=== PATIENT | female | born 1940 ===

== ENCOUNTER 2017-03-19 11:02 | Emergency (ER) | payer MEDICARE, OTHER ==
[2017-03-19 11:16] VITALS: BP 118/69; PULSE 83; RESP 16; TEMP 97; O2SAT 98; BMI 23.7
--- NOTE | 2017-03-19 13:26 | ED PDOC ---
HPI: General Adult Time Seen by Provider: 03/19/17 11:55 Chief Complaint (Nursing): Abnormal Skin Integrity Past Medical History Vital Signs: Last Vital Signs Temp 97 F L 03/19/17 11:15 Pulse 83 03/19/17 11:15 Resp 16 03/19/17 11:15 BP 118/69 03/19/17 11:15 Pulse Ox 98 03/19/17 11:15 - Medical History PMH: Diabetes, HTN, Hypercholesterolemia Denies: Chronic Kidney Disease - Surgical History Surgical History: Endoscopy - Family History Family History: States: Unknown Family Hx - Immunization History Hx Tetanus Toxoid Vaccination: Yes - Home Medications Home Medications: Ambulatory Orders Medication Instructions Recorded Insulin Aspart, Recombinant 8 units SC TID 09/10/16 [Novolog] Insulin Detemir [Levemir] 20 unit SC HS #1 bottle 09/10/16 Olmesartan Medoxomil [Benicar] 5 mg PO DAILY 09/10/16 metFORMIN [glucOPHAGE] 500 mg PO BID 09/10/16 Cephalexin [cephalexin] 500 mg PO QID 7 Days 03/19/17 DiphenhydrAMINE [Benadryl] 25 mg PO Q8H PRN 5 Days 03/19/17 - Allergies Allergies/Adverse Reactions: Allergies Allergy/AdvReac Type Severity Reaction Status Date / Time No Known Allergies Allergy Verified 09/10/16 03:02 - ECG O2 Sat by Pulse Oximetry: 98 Pulse Ox Interpretation: Normal - Progress ED Course And Treament: 1323: Stable. AAOx3. Pain free. Family states she gets this frequently after eating shrimp. Disposition - Clinical Impression Clinical Impression: Allergic reaction, Cellulitis - Patient ED Disposition Is Patient to be Admitted: No Counseled Patient/Family Regarding: Diagnosis, Need For Followup, Rx Given - Disposition Referrals: [facility] [Outside] - 03/20/17 Bill Berman MD [Staff Provider] - Disposition: Routine/Home Disposition Time: 13:24 Condition: STABLE Additional Instructions: Return if not better in 3 days. Prescriptions: Cephalexin [cephalexin] 500 mg PO QID 7 Days DiphenhydrAMINE [Benadryl] 25 mg PO Q8H PRN 5 Days PRN Reason: Rash Instructions: General Allergic Reaction (ED), Cellulitis (ED) Print Language: [place] HEL[place]
== END 2017-03-19 13:48 | disposition home or self-care (01) ==
LOC: H.ER 11:02
DX: T78.40XA Allergy, unspecified, initial encounter (principal); L03.90 Cellulitis, unspecified; E11.9 Type 2 diabetes mellitus without complications; E78.00 Pure hypercholesterolemia, unspecified; I10 Essential (primary) hypertension; Z79.4 Long term (current) use of insulin; Z79.899 Other long term (current) drug therapy

== ENCOUNTER 2017-11-24 00:42 | Emergency (ER) | payer MEDICARE, OTHER ==
[2017-11-24 00:43] VITALS: BMI 23.7
[2017-11-24] MEDS ORDERED: Naproxen 500 MG TAB PO STA (01:24)
--- NOTE | 2017-11-24 03:08 | CT ---
EXAM: CT Lumbar Spine Without Intravenous Contrast CLINICAL HISTORY: 77 years old, female; Pain; Low back pain; Additional info: Neck hip and lower back pain S/P fall TECHNIQUE: Axial computed tomography images of the lumbar spine without intravenous contrast. All CT scans at this facility use one or more dose reduction techniques, viz.: automated exposure control; ma/kV adjustment per patient size (including targeted exams where dose is matched to indication; i.e. head); or iterative reconstruction technique. Coronal and sagittal reformatted images were created and reviewed. COMPARISON: No relevant prior studies available. FINDINGS: Vertebrae: No acute fracture. Mild facet osteoarthrosis. Discs/spinal canal/neural foramina: [id number] degenerative disc disease at L2-L3 level. Mild degenerative disc disease at remaining levels. Poxn-eq-uopkuoel central canal stenosis at L2-L3, L3-L4, L4-L5 levels. Soft tissues: Unremarkable. Vasculature: Atherosclerotic disease of visualized arteries. Kidneys and ureters: Small calculus within LEFT kidney. Stomach and bowel: Postsurgical changes of distal colon. Colonic diverticula. Reproductive: Mild prominent uterus for age. IMPRESSION: 1. No fracture. 2. Incidental/non-acute findings are described above.
--- NOTE | 2017-11-24 03:26 | ED PDOC ---
HPI: General Adult Time Seen by Provider: 11/24/17 01:09 Chief Complaint (Nursing): Trauma Chief Complaint (Provider): Low back and hip pain s/ fall History Per: Patient History/Exam Limitations: no limitations Onset/Duration Of Symptoms: Mins Have you had recent travel within the past 21 days to any of the following countries: [place], [place], [place] or [place]?: No Additional Complaint(s): 77 yo female with HTN and DM presents to ER with daughter for evaluation of lower back and left hip pain. PT states she was gettign out of bed to get some water when she got tangled in the sheets and tripped. No LOC. No head injury. Pt did not take anything at home for pain. Pt concerned about hip, ambulated into ER Past Medical History Reviewed: Historical Data, Nursing Documentation, Vital Signs Vital Signs: Last Vital Signs Temp 97.7 F 11/24/17 01:04 Pulse 88 11/24/17 01:04 Resp 18 11/24/17 01:04 BP 166/91 H 11/24/17 01:04 Pulse Ox 96 11/24/17 01:04 - Medical History PMH: Diabetes, HTN, Hypercholesterolemia Denies: Chronic Kidney Disease - Surgical History Surgical History: Endoscopy - Family History Family History: States: Unknown Family Hx - Living Arrangements Living Arrangements: With Family - Social History Current smoker - smoking cessation education provided: No - Immunization History Hx Tetanus Toxoid Vaccination: Yes - Home Medications Home Medications: Ambulatory Orders Medication Instructions Recorded Insulin Aspart, Recombinant 8 units SC TID 09/10/16 [Novolog] Insulin Detemir [Levemir] 20 unit SC HS #1 bottle 09/10/16 Olmesartan Medoxomil [Benicar] 5 mg PO DAILY 09/10/16 metFORMIN [glucOPHAGE] 500 mg PO BID 09/10/16 Cephalexin [cephalexin] 500 mg PO QID 7 Days cap 03/19/17 DiphenhydrAMINE [Benadryl] 25 mg PO Q8H PRN 5 Days cap 03/19/17 - Allergies Allergies/Adverse Reactions: Allergies Allergy/AdvReac Type Severity Reaction Status Date / Time No Known Allergies Allergy Verified 09/10/16 03:02 Review of Systems ROS Statement: Except As Marked, All Systems Reviewed And Found Negative Constitutional: Negative for: Fever, Chills Cardiovascular: Negative for: Chest Pain Respiratory: Negative for: Cough, Shortness of Breath Musculoskeletal: Positive for: Back Pain, Other Physical Exam - Reviewed Nursing Documentation Reviewed: Yes Vital Signs Reviewed: Yes - Physical Exam Appears: Positive for: Well, Non-toxic, No Acute Distress Head Exam: Positive for: ATRAUMATIC, NORMAL INSPECTION, NORMOCEPHALIC Skin: Positive for: Normal Color, Warm, DRY Eye Exam: Positive for: Normal appearance ENT: Positive for: Normal ENT Inspection Neck: Positive for: Normal, Painless ROM Cardiovascular/Chest: Positive for: Regular Rate, Rhythm Respiratory: Positive for: Normal Breath Sounds. Negative for: Accessory Muscle Use, Respiratory Distress Gastrointestinal/Abdominal: Positive for: Normal Exam, Bowel Sounds, Soft. Negative for: Tenderness Back: Positive for: Vertebral Tenderness. Negative for: Normal Inspection Extremity: Positive for: Normal ROM Neurologic/Psych: Positive for: Alert, Oriented - ECG O2 Sat by Pulse Oximetry: 96 Medical Decision Making Medical Decision Making: LS CT - No acute findings Copy given to patient and discussed f/u with PMD for non-urgent findings Hip x-ray without acute fracture or dislocation (reviewed with Dr. Raines) Disposition - Clinical Impression Clinical Impression: Hip injury - Patient ED Disposition Is Patient to be Admitted: No Counseled Patient/Family Regarding: Diagnosis, Need For Followup - Disposition Disposition: Routine/Home Disposition Time: 03:27 Condition: STABLE Instructions: Preventing Falls in the Older Adult Print Language: BRAZILIAN
[2017-11-24 03:46] VITALS: BP 154/89; PULSE 75; RESP 16; TEMP 97.5; O2SAT 98
--- NOTE | 2017-11-24 09:55 | RAD ---
PROCEDURE: Left Hip X-ray Radiographs. HISTORY: Left hip pain, fall COMPARISON: None. FINDINGS: BONES: Frontal view of the pelvis and frontal and frogleg views of the left hip were performed for left hip pain and trauma. No fracture is seen. No femoral head flattening is seen. No hip dislocation is noted. Remainder of the [place] pelvis including the right hip are intact. No sacroiliac joint widening is seen. Mild degenerative changes are identified in the left hip region. Trochanters and proximal left femoral shaft are intact. JOINTS: See above SOFT TISSUES: Normal. OTHER FINDINGS: None. IMPRESSION: No fracture.
== END 2017-11-24 03:53 | disposition home or self-care (01) ==
LOC: H.ER 00:42
DX: S79.912A Unspecified injury of left hip, initial encounter (principal); W06.XXXA Fall from bed, initial encounter; Y93.9 Activity, unspecified; E11.9 Type 2 diabetes mellitus without complications; I10 Essential (primary) hypertension; Z79.4 Long term (current) use of insulin; E78.00 Pure hypercholesterolemia, unspecified

== ENCOUNTER 2018-05-20 11:04 | Emergency (ER) | payer MEDICARE, OTHER ==
[2018-05-20 11:22] VITALS: O2SAT 97; BMI 23.3
[2018-05-20 12:51] LABS: BASO # 0.1 K/uL (0.0-0.2); BASO % 0.9 % (0.0-2.0); EOS # 0.2 K/uL (0.0-0.7); EOS % 2.7 % (0.0-4.0); HEMOGLOBIN 12.9 g/dL (12.0-16.0); LYMPH # 1.6 K/uL (1.0-4.3); LYMPH % 25.1 % (20.0-40.0); MEAN CELL VOLUME 87.1 fl (81.0-99.0); MEAN CORPUSCULAR HGB CONC 33.3 g/dL (33.0-37.0); MEAN PLATELET VOLUME 8.7 fl (7.2-11.7); MONO # 0.4 K/uL (0.0-0.8); MONO % 6.8 % (0.0-10.0); NEUT # 4.2 K/uL (1.8-7.0); NEUT % 64.5 % (50.0-75.0); RBC 4.43 Mil/uL (3.80-5.20); RED CELL DISTRIBUTION WIDTH 13.8 % (11.5-14.5); WHITE BLOOD COUNT 6.5 K/uL (4.8-10.8)
[2018-05-20 12:55] LABS: PROTHROMBIN TIME 10.7 Seconds (9.8-13.1)
[2018-05-20 12:58] LABS: PARTIAL THROMBOPLASTIN TIME 25.9 Seconds (25.6-37.1)
--- NOTE | 2018-05-20 13:01 | ED PDOC ---
HPI: Trauma/Fall - HPI Time Seen by Provider: 05/20/18 12:12 Chief Complaint (Nursing): Trauma Chief Complaint (Provider): Trauma History Per: Patient History/Exam Limitations: no limitations Onset/Duration Of Symptoms: Hrs Location Of Injury: Right: Elbow, Head Associated Symptoms: Dizziness. denies: LOC Additional Complaint(s): 78 years old female with hypertension, hypercholesterolemia and diabetes presents to the ED with pain to head, right elbow and pelvis status post a mechanical fall onset this morning while getting out of shower. Patient states she slipped and hit her head with bathroom floor. She denies any loss of consciousness but reports dizziness lasted for 5 minutes. Patient reports right elbow pain on flexion and extension. She denies any nausea or vomiting. PMD: non provided Past Medical History Reviewed: Historical Data, Nursing Documentation, Vital Signs Vital Signs: Last Vital Signs Temp 97 F L 05/20/18 11:21 Pulse 74 05/20/18 11:21 Resp 20 05/20/18 11:21 BP 138/82 05/20/18 11:21 Pulse Ox 97 05/20/18 11:21 - Medical History PMH: Diabetes, HTN, Hypercholesterolemia Denies: Chronic Kidney Disease - Surgical History Surgical History: Endoscopy - Family History Family History: States: Unknown Family Hx - Social History Current smoker - smoking cessation education provided: No Alcohol: None Drugs: Denies - Immunization History Hx Tetanus Toxoid Vaccination: Yes Hx Influenza Vaccination: Yes Hx Pneumococcal Vaccination: No - Home Medications Home Medications: Ambulatory Orders Medication Instructions Recorded Insulin Aspart, Recombinant 8 units SC TID 09/10/16 [Novolog] Insulin Detemir [Levemir] 20 unit SC HS #1 bottle 09/10/16 Olmesartan Medoxomil [Benicar] 5 mg PO DAILY 09/10/16 metFORMIN [glucOPHAGE] 500 mg PO BID 09/10/16 Cephalexin [cephalexin] 500 mg PO QID 7 Days cap 03/19/17 DiphenhydrAMINE [Benadryl] 25 mg PO Q8H PRN 5 Days cap 03/19/17 - Allergies Allergies/Adverse Reactions: Allergies Allergy/AdvReac Type Severity Reaction Status Date / Time No Known Allergies Allergy Verified 09/10/16 03:02 Review of Systems ROS Statement: Except As Marked, All Systems Reviewed And Found Negative Gastrointestinal: Negative for: Nausea, Vomiting Musculoskeletal: Positive for: Hand Pain (Right elbow), Other (Pelvis pain) Neurological: Positive for: Dizziness Physical Exam - Reviewed Nursing Documentation Reviewed: Yes Vital Signs Reviewed: Yes - Physical Exam Appears: Positive for: Non-toxic, No Acute Distress Head Exam: Positive for: ATRAUMATIC, NORMOCEPHALIC Skin: Positive for: Normal Color, Warm, Dry Eye Exam: Positive for: Normal appearance, EOMI, PERRL Gastrointestinal/Abdominal: Positive for: Normal Exam, Soft. Negative for: Tenderness Back: Positive for: Normal Inspection. Negative for: Vertebral Tenderness Extremity: Positive for: Normal ROM (of upper and lower extremity. Full ROM of hips and knees.), Other (Pain on flexion and extension of right elbow with no loss of movement. Distal pulses 2+). Negative for: Tenderness (on palpation to left posterior hip) Neurologic/Psych: Positive for: Alert, Oriented (x3), Other (Cranial nerves iintact). Negative for: Motor/Sensory Deficits - Laboratory Results Result Diagrams: 05/20/18 12:43 05/20/18 12:43 - ECG O2 Sat by Pulse Oximetry: 97 (RA) Pulse Ox Interpretation: Normal Medical Decision Making Medical Decision Making: Time: 1222 A/P: workup for injury due to mechanical fall --Patient is able to ambulate --Right elbow X-Ray --Head CT --Cervical spine CT [address] FINDINGS: HEMORRHAGE: No intracranial hemorrhage. BRAIN: Normal henderson-white matter differentiation and density are appreciated throughout the cerebrum and cerebellum with the brainstem appearing unremarkable as well. There is no mass effect. There is no suspicious extra-axial fluid collection and the midline brain anatomy appears diffusely unremarkable. VENTRICLES: Unremarkable. No hydrocephalus. CALVARIUM: No destructive bony lesion or displaced fracture identified including through the skullbase. PARANASAL SINUSES: Unremarkable as visualized. No significant inflammatory changes. MASTOID AIR CELLS: Unremarkable as visualized. No inflammatory changes. OTHER FINDINGS: None. IMPRESSION: Stable unremarkable noncontrast head CT. [address] FINDINGS: VERTEBRAE: Borderline spondylolisthesis C3-4 with C3 questionably anterior to C4 by less than 2 mm. Degenerative facet arthropathy is felt to be the etiology. No fracture identified throughout cervical spine. Mild cervical straightening appreciated. Advanced spondylosis is seen at C6-7, moderate at C5-6. DISCS/SPINAL CANAL/NEURAL FORAMINA: Moderate to severe left and moderate right degenerative neural foraminal stenoses are identified with disc osteophyte complex causing borderline central stenosis at C6-7. No significant central stenosis otherwise evident. PARASPINAL SOFT TISSUES: Unremarkable. OTHER FINDINGS: None. IMPRESSION: No fracture appreciated throughout. Borderline degenerative spondylolisthesis C3 -4. Borderline degenerative central canal stenosis C6-7. Moderate to severe left and moderate right degenerative neural foraminal stenoses identified. No gross disc herniation. 1518 Hip/Pelvis X-Ray FINDINGS: There are no osseous abnormalities to suggest fracture. The pelvic ring is intact. Preserved femoral-acetabular relationship. Negative study for protrusio , subluxation or dislocation. Degenerative changes: Mild and symmetrical. IMPRESSION: No acute findings related to/accounting for the clinical presentation. 1519 Elbow X-Ray FINDINGS: BONES: Normal. No fracture. JOINTS: Normal. No osteoarthritis. SOFT TISSUES: Normal. JOINT EFFUSION: None. OTHER FINDINGS: None. IMPRESSION: No acute findings related to/accounting for the clinical presentation. 1548 Images reviewed and show no significant abnormality. Patient is ambulatory without deficit, will go home with children with a prescription of Tylenol and instructions to follow up with PMD. ----- Scribe Attestation: Documented by Kaia Dawn, acting as a scribe for Kisha Vasquez MD. Provider Scribe Attestation: All medical record entries made by the Scribe were at my direction and personally dictated by me. I have reviewed the chart and agree that the record accurately reflects my personal performance of the history, physical exam, medical decision making, and the department course for this patient. I have also personally directed, reviewed, and agree with the discharge instructions and disposition. Disposition - Clinical Impression Clinical Impression: Accident due to mechanical fall without injury, Minor head trauma - Disposition Disposition: Routine/Home Disposition Time: 15:48 Condition: IMPROVED Additional Instructions: Take Tylenol for pain. Follow up with primary medical doctor as needed. Return to the emergency department if you develop dizziness, weakness, numbness, trouble breathing, confusion, nausea, or vomiting. Instructions: Preventing Falls in the Older Adult, Minor Head Injury, Minor Head Injury (DC) Forms: [facility] (Brazilian), [facility] (Yakut) Print Language: NIUEAN
[2018-05-20 13:04] LABS: CALCIUM 9.6 mg/dL (8.4-10.2); GFR NON-AFRICAN AMERICAN > 60
[2018-05-20 13:05] LABS: BLOOD UREA NITROGEN 21 mg/dl (7-17)
--- NOTE | 2018-05-20 13:13 | CT ---
Date of service: 05/20/2018 PROCEDURE: CT HEAD WITHOUT CONTRAST. HISTORY: mechanical fall with head strike COMPARISON: Noncontrast head CT 09/05/2014. TECHNIQUE: Axial computed tomography images were obtained through the head/brain without intravenous contrast. Radiation dose: Total exam DLP = 666.37 mGy-cm. This CT exam was performed using one or more of the following dose reduction techniques: Automated exposure control, adjustment of the mA and/or kV according to patient size, and/or use of iterative reconstruction technique. FINDINGS: HEMORRHAGE: No intracranial hemorrhage. BRAIN: Normal henderson-white matter differentiation and density are appreciated throughout the cerebrum and cerebellum with the brainstem appearing unremarkable as well. There is no mass effect. There is no suspicious extra-axial fluid collection and the midline brain anatomy appears diffusely unremarkable. VENTRICLES: Unremarkable. No hydrocephalus. CALVARIUM: No destructive bony lesion or displaced fracture identified including through the skullbase. PARANASAL SINUSES: Unremarkable as visualized. No significant inflammatory changes. MASTOID AIR CELLS: Unremarkable as visualized. No inflammatory changes. OTHER FINDINGS: None. IMPRESSION: Stable unremarkable noncontrast head CT.
--- NOTE | 2018-05-20 13:47 | CT ---
Date of service: 05/20/2018 PROCEDURE: CT Cervical Spine without contrast HISTORY: mechanical fall with head strike COMPARISON: Cervical spine radiographs 04/16/2017. TECHNIQUE: Axial computed tomography images were obtained of the cervical spine without the use of intravenous contrast. Coronal and sagittal reformatted images were created and reviewed. Radiation dose: Total exam DLP = 334.92 mGy-cm. This CT exam was performed using one or more of the following dose reduction techniques: Automated exposure control, adjustment of the mA and/or kV according to patient size, and/or use of iterative reconstruction technique. FINDINGS: VERTEBRAE: Borderline spondylolisthesis C3-4 with C3 questionably anterior to C4 by less than 2 mm. Degenerative facet arthropathy is felt to be the etiology. No fracture identified throughout cervical spine. Mild cervical straightening appreciated. Advanced spondylosis is seen at C6-7, moderate at C5-6. DISCS/SPINAL CANAL/NEURAL FORAMINA: Moderate to severe left and moderate right degenerative neural foraminal stenoses are identified with disc osteophyte complex causing borderline central stenosis at C6-7. No significant central stenosis otherwise evident. PARASPINAL SOFT TISSUES: Unremarkable. OTHER FINDINGS: None. IMPRESSION: No fracture appreciated throughout. Borderline degenerative spondylolisthesis C3-4. Borderline degenerative central canal stenosis C6-7. Moderate to severe left and moderate right degenerative neural foraminal stenoses identified. No gross disc herniation.
--- NOTE | 2018-05-20 15:19 | RAD ---
Date of service: 05/20/2018 PROCEDURE: Pelvis bilateral hips HISTORY: mechanical fall with pain to right hip/pelvis COMPARISON: None TECHNIQUE: Standard protocol for this study/examination. FINDINGS: There are no osseous abnormalities to suggest fracture. The pelvic ring is intact. Preserved femoral-acetabular relationship. Negative study for protrusio, subluxation or dislocation. Degenerative changes: Mild and symmetrical. IMPRESSION: No acute findings related to/accounting for the clinical presentation.
--- NOTE | 2018-05-20 15:20 | RAD ---
Date of service: 05/20/2018 PROCEDURE: Radiographs of the right elbow. HISTORY: trauma and pain to right elbow COMPARISON: No prior. FINDINGS: BONES: Normal. No fracture. JOINTS: Normal. No osteoarthritis. SOFT TISSUES: Normal. JOINT EFFUSION: None. OTHER FINDINGS: None. IMPRESSION: No acute findings related to/accounting for the clinical presentation.
[2018-05-20 16:01] VITALS: BP 132/76; PULSE 78; RESP 16; TEMP 97.5
--- NOTE | 2018-05-20 18:57 | CARD ---
APPROVED REPORT Date of service: 05/20/2018 <Conclusion> Normal sinus rhythm Nonspecific ST abnormality Abnormal ECG
== END 2018-05-20 15:59 | disposition home or self-care (01) ==
LOC: H.ER 11:04
DX: S09.90XA Unspecified injury of head, initial encounter (principal); E11.9 Type 2 diabetes mellitus without complications; I10 Essential (primary) hypertension; Z79.4 Long term (current) use of insulin; W01.198A Fall on same level from slipping, tripping and stumbling with subsequent striking against other object, initial encounter; Y93.F1 Activity, caregiving, bathing

== ENCOUNTER 2019-01-26 02:32 | Observation (INO) | payer MEDICARE, OTHER ==
[2019-01-26 02:32] VITALS: BMI 23.3
[2019-01-26 03:26] LABS: ALB/GLOB RATIO 1.3 (1.0-2.1); ALBUMIN 4.5 g/dL (3.5-5.0); BLOOD UREA NITROGEN 26 mg/dl (7-17); CALCIUM 9.9 mg/dL (8.4-10.2); GFR NON-AFRICAN AMERICAN > 60
[2019-01-26 03:28] LABS: ALT/SGPT 26 U/L (9-52); AST/SGOT 31 U/L (14-36)
[2019-01-26 03:59] LABS: BASO % 0.6 % (0.0-2.0); EOS # 0.3 K/uL (0.0-0.7); EOS % 3.3 % (0.0-4.0); HEMOGLOBIN 13.6 g/dL (12.0-16.0); LYMPH # 2.7 K/uL (1.0-4.3); LYMPH % 33.8 % (20.0-40.0); MEAN CELL VOLUME 84.4 fl (81.0-99.0); MEAN CORPUSCULAR HEMOGLOBIN 28.8 pg (27.0-31.0); MEAN CORPUSCULAR HGB CONC 34.1 g/dL (33.0-37.0); MEAN PLATELET VOLUME 9.5 fl (7.2-11.7); MONO # 0.6 K/uL (0.0-0.8); MONO % 7.5 % (0.0-10.0); NEUT # 4.4 K/uL (1.8-7.0); NEUT % 54.8 % (50.0-75.0); NRBC % 0.1 % (0.0-0.0); RBC 4.74 Mil/uL (3.80-5.20); RED CELL DISTRIBUTION WIDTH 13.8 % (11.5-14.5)
--- NOTE | 2019-01-26 04:20 | ED PDOC ---
HPI: General Adult Time Seen by Provider: 01/26/19 02:50 Chief Complaint (Nursing): Chest Pain Chief Complaint (Provider): Elevated suagr and blood pressure History Per: Patient, Trim Carpenter (CAROLINA CassidyHander In named Cindi #[id number]) History/Exam Limitations: no limitations Onset/Duration Of Symptoms: Hrs Additional Complaint(s): 78 year old female with pmhx of diabetes presents to the ED for an evaluation of elevated blood pressure and elevated sugar after eating tonight. Her sugar level was about 400. Also reports of slight dizziness. Otherwise denies fever, vomiting, diarrhea or abdominal pain. PMD: Desmond Mejía Past Medical History Reviewed: Historical Data, Nursing Documentation, Vital Signs Vital Signs: Last Vital Signs Temp 98 F 01/26/19 02:45 Pulse 78 01/26/19 02:45 Resp 20 01/26/19 02:45 BP 149/82 01/26/19 03:02 Pulse Ox 166 H 01/26/19 02:45 Primary Care Provider: Desmond Mejía - Medical History PMH: Diabetes, HTN, Hypercholesterolemia Denies: Chronic Kidney Disease - Surgical History Surgical History: Endoscopy - Family History Family History: States: Unknown Family Hx - Social History Current smoker - smoking cessation education provided: No Alcohol: None Drugs: Denies - Immunization History Hx Tetanus Toxoid Vaccination: Yes Hx Influenza Vaccination: Yes Hx Pneumococcal Vaccination: No - Home Medications Home Medications: Ambulatory Orders Medication Instructions Recorded Insulin Aspart, Recombinant 8 units SC TID 09/10/16 [Novolog] Insulin Detemir [Levemir] 20 unit SC HS #1 bottle 09/10/16 Atorvastatin [Lipitor] 40 mg PO HS 01/26/19 Carvedilol [Coreg] 6.25 mg PO BID 01/26/19 Empagliflozin/Metformin HCl 1 tab PO BID 01/26/19 [Synjardy 12.5-1,000 mg Tablet] Gabapentin [Neurontin] 300 mg PO HS 01/26/19 Olmesartan/Hydrochlorothiazide 1 tab PO DAILY 01/26/19 [Benicar Hct 40-12.5 mg Tablet] Omeprazole 40 mg PO DAILY 01/26/19 Ondansetron HCl [Zofran] 8 mg PO TID PRN 01/26/19 amLODIPine [Norvasc] 10 mg PO DAILY 01/26/19 - Allergies Allergies/Adverse Reactions: Allergies Allergy/AdvReac Type Severity Reaction Status Date / Time No Known Allergies Allergy Verified 01/26/19 02:47 Review of Systems ROS Statement: Except As Marked, All Systems Reviewed And Found Negative Constitutional: Negative for: Fever Respiratory: Negative for: Cough, Shortness of Breath Gastrointestinal: Negative for: Nausea, Vomiting, Abdominal Pain, Diarrhea Neurological: Positive for: Dizziness Physical Exam - Reviewed Nursing Documentation Reviewed: Yes Vital Signs Reviewed: Yes - Physical Exam Appears: Positive for: Well, Non-toxic, No Acute Distress Head Exam: Positive for: ATRAUMATIC, NORMAL INSPECTION, NORMOCEPHALIC Skin: Positive for: Normal Color, Warm, Dry. Negative for: Rash Eye Exam: Positive for: EOMI, Normal appearance, PERRL ENT: Positive for: Normal ENT Inspection Neck: Positive for: Normal, Painless ROM Cardiovascular/Chest: Positive for: Regular Rate, Rhythm. Negative for: Murmur Respiratory: Positive for: Normal Breath Sounds. Negative for: Decreased Breath Sounds, Wheezing, Respiratory Distress Gastrointestinal/Abdominal: Positive for: Normal Exam, Bowel Sounds, Soft. Negative for: Tenderness, Distended, Guarding, Rebound Back: Positive for: Normal Inspection Extremity: Positive for: Normal ROM. Negative for: Tenderness, Pedal Edema, Deformity Neurological/Psych: Positive for: Awake, Alert, Normal Tone, Oriented (x3) - Laboratory Results Result Diagrams: 01/26/19 03:09 01/26/19 03:09 Lab Results: Troponin I < 0.0120 ng/mL (0.00-0.120) 01/26/19 03:09 Total Bilirubin 0.5 mg/dl (0.2-1.3) 01/26/19 03:09 AST 31 U/L (14-36) 01/26/19 03:09 ALT 26 U/L (9-52) 01/26/19 03:09 Alkaline Phosphatase 108 U/L (38-126) 01/26/19 03:09 Total Protein 8.0 G/DL (6.3-8.2) 01/26/19 03:09 Albumin 4.5 g/dL (3.5-5.0) 01/26/19 03:09 Globulin 3.5 gm/dL (2.2-3.9) 01/26/19 03:09 Albumin/Globulin Ratio 1.3 (1.0-2.1) 01/26/19 03:09 - ECG ECG: Positive for: Interpreted By Me, Viewed By Me ECG Rhythm: Positive for: Sinus Rhythm Rate: 75 O2 Sat by Pulse Oximetry: 96 (RA) Pulse Ox Interpretation: Normal Medical Decision Making Medical Decision Making: Time: 02:47 Plan: chest pain rule out cardiac etiology. unlikely PE,rule out pneumonia. --EKG --CMP --Troponin --CBC w/ differential --Normal saline 200mls/hr 0442 EKG: normal sinus rhythm at 75bpm Case discussed with Dr. 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 Provider Scribe Attestation: All medical record entries made by the Scribe were at my direction and personally dictated by me. I have reviewed the chart and agree that the record accurately reflects my personal performance of the history, physical exam, medical decision making, and the department course for this patient. I have also personally directed, reviewed, and agree with the discharge instructions and disposition. Disposition - Clinical Impression Clinical Impression: Acute chest pain - Patient ED Disposition Is Patient to be Admitted: Yes Counseled Patient/Family Regarding: Studies Performed, Diagnosis - Disposition Disposition Time: 04:35 Condition: GOOD - POA Present On Arrival: None
[2019-01-26] MEDS ORDERED: Sodium Chloride 0.9% 1,000 ML IV STA (04:43)
--- NOTE | 2019-01-26 05:27 | CP.PCM.HP ---
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 Patient reports dyspnea at the time when chest pain started. States chest pain lasted for several hours and resolved upon arrival to ED. Patient reports her BP and blood glucose were elevated as well. Patient took 2 aspirin at 7 pm. Denies any nausea, vomiting, headache, dizziness, blurry vision or focal weakness. Patient has history of similar chest pain in 2017. Patient reports she had history of cardiac arrest that required debrillation about 14 years ago and follow up with [employer] Dr. Mejía who is also her PMD. In the ED, patients ECG was unremarkable and troponin x 1 neg. Patient is admitted for chest pain evaluation. PMD and [employer]: Dr. Mejía ROS: All 12 systems reviewed and negative except as mentioned in HPI. PMHx : DMII, HTN, HLD, uterine fibroids, Lower back pain, hx cardiac arrest. PSHx: Loco's with reversal for perf during colonoscopy 2002, endometrial biopsy Family hx: Father of emphysema at 78, Mother of ESRD at age 64, DMII. Social hx: Denies smoking cigarettes, drinking ETOH or using drugs. ALL: NKDA Meds: reviewed, see med recs Present on Admission - Present on Admission Any Indicators Present on Admission: No Review of Systems - Review of Systems Review of Systems: All 12 systems reviewed and negative except as mentioned in HPI Past Patient History - Past Medical History & Family History Past Medical History?: Yes - Past Social History Alcohol: None Drugs: Denies - CARDIAC Hx Hypercholesterolemia: Yes Hx Hypertension: Yes - PULMONARY Hx Respiratory Disorders: No - NEUROLOGICAL Hx Neurological Disorder: No - HEENT Hx HEENT Problems: No - RENAL Hx Chronic Kidney Disease: No - ENDOCRINE/METABOLIC Hx Endocrine Disorders: Yes Hx Diabetes Mellitus Type 2: Yes - HEMATOLOGICAL/ONCOLOGICAL Hx Blood Disorders: No - INTEGUMENTARY Hx Dermatological Problems: No - MUSCULOSKELETAL/RHEUMATOLOGICAL Hx Musculoskeletal Disorders: Yes Hx Falls: Yes - GASTROINTESTINAL Hx Gastrointestinal Disorders: Yes Hx Colostomy: Yes (reversed colostomy 10 years ago) - GENITOURINARY/GYNECOLOGICAL Hx Genitourinary Disorders: No - PSYCHIATRIC Hx Psychophysiologic Disorder: No Hx Substance Use: No - SURGICAL HISTORY Hx Surgeries: Yes Other/Comment: perforated intestinal repair - ANESTHESIA Hx Anesthesia: No Hx Anesthesia Reactions: No Hx Malignant Hyperthermia: No Meds Allergies/Adverse Reactions: Allergies Allergy/AdvReac Type Severity Reaction Status Date / Time No Known Allergies Allergy Verified 01/26/19 02:47 Physical Exam - Constitutional Appears: Well, Non-toxic, No Acute Distress - Head Exam Head Exam: NORMAL INSPECTION - Eye Exam Eye Exam: EOMI, Normal appearance, PERRL - ENT Exam ENT Exam: Mucous Membranes Moist, Normal Oropharynx - Neck Exam Neck exam: Positive for: Normal Inspection - Respiratory Exam Respiratory Exam: Clear to Auscultation Bilateral, NORMAL BREATHING PATTERN. absent: Rales, Rhonchi, Wheezes, Respiratory Distress - Cardiovascular Exam Cardiovascular Exam: REGULAR RHYTHM, +S1, +S2 - GI/Abdominal Exam GI & Abdominal Exam: Normal Bowel Sounds, Soft. absent: Tenderness - Extremities Exam Extremities exam: Positive for: normal inspection, pedal pulses present. Nega tive for: calf tenderness - Back Exam Back exam: absent: CVA tenderness (L), CVA tenderness (R) - Neurological Exam Neurological exam: Alert, CN II-XII Intact, Oriented x3 - Psychiatric Exam Psychiatric exam: Normal Affect, Normal Mood - Skin Skin Exam: Normal Color Results - Vital Signs Recent Vital Signs: Last Vital Signs Temp 98 F 01/26/19 02:45 Pulse 75 01/26/19 05:10 Resp 18 01/26/19 03:58 BP 125/72 01/26/19 03:58 Pulse Ox 96 01/26/19 05:10 - Labs Result Diagrams: 01/26/19 03:09 01/26/19 03:09 Labs: Laboratory Results - last 24 hr 01/26/19 01/26/19 03:09 03:09 WBC 8.0 RBC 4.74 Hgb 13.6 Hct 40.0 MCV 84.4 D MCH 28.8 MCHC 34.1 RDW 13.8 Plt Count 249 MPV 9.5 Neut % (Auto) 54.8 Lymph % (Auto) 33.8 [place] % (Auto) 7.5 Eos % (Auto) 3.3 Baso % (Auto) 0.6 Neut # (Auto) 4.4 Lymph # (Auto) 2.7 [place] # (Auto) 0.6 Eos # (Auto) 0.3 Baso # (Auto) 0.0 Sodium 139 Potassium 4.6 Chloride 105 Carbon Dioxide 21 L Anion Gap 18 BUN 26 H Creatinine 0.7 Est GFR ( Amer) > 60 Est GFR (Non-Af Amer) > 60 Random Glucose 137 H Calcium 9.9 Total Bilirubin 0.5 AST 31 ALT 26 Alkaline Phosphatase 108 Troponin I < 0.0120 Total Protein 8.0 Albumin 4.5 Globulin 3.5 Albumin/Globulin Ratio 1.3 Assessment & Plan - Assessment and Plan (Free Text) Assessment: 78 year old Female with PMHx HTN, DMII, HLD, Lower back pain, hx 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 In the ED, patients ECG was unremarkable and troponin x 1 neg. Patient is admitted for chest pain evaluation. Plan: Chest pain r/o ACS -BP elevated on arrival (bp 166/97), stable now -ECG: NSR @75 BPM, non specific ST abnormality (unchanged from previous ECG) -Troponin x1 neg -s/p aspirin 325 mg -c/w aspirin 81 g and atorvastatin 40 mg po qhs -SL nitro 1tab q5min for chest pain -f/u troponin q6hs x 2 -f/u ECHO -[employer] consult: Dr. Dos Santos, f/u recs DMII -resume home medications -Empagliflogin/Metformin BID -Levemir 20 units qhs -SSI Hypertension -stable now -resume home medications: norvasc 10 mg po daily, coreg 6.25 mg bid, Olmesartan/hctz GERD -c/w Omeprazole 40 mg po qd Diet -Diabetes diet and heart healthy diet DVT prophylaxis -Lovenox 40 mg sc daily Code status -Full code Patient seen, examined and plan discussed with Dr. Hira Orr, pgy-2 <HiraJerrod Russell - Last Filed: 01/26/19 09:58> Results - Vital Signs Recent Vital Signs: Last Vital Signs Temp 98.7 F 01/26/19 06:55 Pulse 69 01/26/19 08:14 Resp 17 01/26/19 08:14 BP 139/75 01/26/19 08:14 Pulse Ox 96 01/26/19 08:14 - Labs Result Diagrams: 01/26/19 03:09 01/26/19 03:09 Labs: Laboratory Results - last 24 hr 01/26/19 01/26/19 01/26/19 03:09 03:09 07:25 WBC 8.0 RBC 4.74 Hgb 13.6 Hct 40.0 MCV 84.4 D MCH 28.8 MCHC 34.1 RDW 13.8 Plt Count 249 MPV 9.5 Neut % (Auto) 54.8 Lymph % (Auto) 33.8 [place] % (Auto) 7.5 Eos % (Auto) 3.3 Baso % (Auto) 0.6 Neut # (Auto) 4.4 Lymph # (Auto) 2.7 [place] # (Auto) 0.6 Eos # (Auto) 0.3 Baso # (Auto) 0.0 Sodium 139 Potassium 4.6 Chloride 105 Carbon Dioxide 21 L Anion Gap 18 BUN 26 H Creatinine 0.7 Est GFR ( Amer) > 60 Est GFR (Non-Af Amer) > 60 Random Glucose 137 H Calcium 9.9 Total Bilirubin 0.5 AST 31 ALT 26 Alkaline Phosphatase 108 Troponin I < 0.0120 Total Protein 8.0 Albumin 4.5 Globulin 3.5 Albumin/Globulin Ratio 1.3 Triglycerides 74 D Cholesterol 141 LDL Cholesterol Direct 76 HDL Cholesterol 50 Vitamin B12 665 Attending/Attestation - Attestation I have personally seen and examined this patient.: Yes I have fully participated in the care of the patient.: Yes I have reviewed all pertinent clinical information: Yes Notes (Text): 01/26/19 09:51 I saw, examined and discussed this patient with Dr Morrow. I agree with the assessment sand plan outlined above. This is a 78 years old female with Hx of DM II. HTN and HLd who comes the elevated blood glucose and Chest pain radiating to both shoulders with dizzin ess and elevated blood pressure. . The EKG was NSR and the Troponin was < 0,012.. We will place this patient on observation with serial troponin. EKG and ECHO for wall motion, Consult with Dr Barrientos the [employer]> Jerrod Iniguez MD
[2019-01-26] MEDS ORDERED: Dextrose 50% SYRINGE Inj (50 ml) IV PRN (06:00)
[2019-01-26] MEDS ORDERED: Glucagon Recombinant 1 mg Inj IM PRN (06:00)
[2019-01-26 06:56] VITALS: TEMP 98.7
[2019-01-26 07:47] LABS: HDL CHOLESTEROL 50 MG/DL (30-70)
[2019-01-26 07:58] LABS: LDL CHOLESTEROL 76 mg/dL (0-129)
[2019-01-26] MEDS: Insulin Lispro (humaLOG) 100 Units/ml Inj SC SCH ×2 (08:13→13:05)
[2019-01-26 08:14] VITALS: RESP 17; O2SAT 96
[2019-01-26] MEDS ORDERED: METFORMIN HCL PO SCH (09:00)
[2019-01-26] MEDS ORDERED: Enoxaparin 40 mg Syringe SC SCH (09:00)
[2019-01-26] MEDS ORDERED: EMPAGLIFLOZIN PO SCH (09:00)
[2019-01-26] MEDS ORDERED: Pantoprazole 40 mg EC Tab PO SCH (09:00)
[2019-01-26 11:06] VITALS: BP 132/75
--- NOTE | 2019-01-26 11:50 | CARD ---
APPROVED REPORT Date of service: 01/26/2019 EKG Measurement Heart [id number] <Conclusion> Normal sinus rhythm Normal ECG
--- NOTE | 2019-01-26 11:51 | CARD ---
APPROVED REPORT Date of service: 01/26/2019 EKG Measurement Heart [id number] <Conclusion> Normal sinus rhythm with sinus arrhythmia Nonspecific ST abnormality Abnormal ECG
--- NOTE | 2019-01-26 12:13 | CARD ---
APPROVED REPORT Date of service: 01/26/2019 EXAM: Two-dimensional and M-mode echocardiogram with Doppler and color Doppler. Other Information Quality : GoodRhythm : PVC's INDICATION Chest Pain 2D DIMENSIONS IVSd1.43 (0.7-1.1cm)LVDd3.45 (3.9-5.9cm) LVOT Diameter1.57 (1.8-2.4cm)PWd0.75 (0.7-1.1cm) IVSs1.22 (0.8-1.2cm)LVDs2.62 (2.5-4.0cm) FS (%) 24.1 %PWs1.56 (0.8-1.2cm) M-Mode DIMENSIONS Left Atrium (MM)3.79 (2.5-4.0cm)IVSd0.74 (0.7-1.1cm) Aortic Root2.18 (2.2-3.7cm)LVDd5.12 (4.0-5.6cm) Aortic Cusp Exc.1.47 (1.5-2.0cm)PWd0.85 (0.7-1.1cm) IVSs1.18 cmFS (%) 48 % LVDs2.68 (2.0-3.8cm)PWs1.12 cm Aortic Valve AoV Peak Sxufkkje019.5cm/sAoV VTI34.7cmAO Peak GR.10mmHg LVOT Peak Kysgrlmz68.5cm/sLVOT VTI20.51cmAO Mean GR.5mmHg ADRIENNE (VMAX)0.52ok7XHZ (VTI)0.70cm2 Mitral Valve MV E Lfvogqdz96.9cm/sMV DECEL FDHF107xlLH A Lrgpwkrb294.9cm/s MV MZA53duL/A ratio0.7MVA (PHT)3.81cm2 TDI Lateral E' Peak V7.17cm/sMedial E' Peak V6.36cm/sE/Lateral E'11.4 E/Medial E'12.9 LEFT VENTRICLE The left ventricle is normal size. There is mild concentric left ventricular hypertrophy. The left ventricular systolic function is normal. The estimated ejection fraction is 60-65% No regional wall motion abnormalities noted.. Transmitral Doppler flow pattern is Grade I-abnormal relaxation pattern. No left ventricle thrombus noted on this study. There is no ventricular septal defect visualized. There is no left ventricular aneurysm. There is no mass noted in the left ventricle. RIGHT VENTRICLE The right ventricle is normal size. There is normal right ventricular wall thickness. The right ventricular systolic function is normal. ATRIA The left atrium is borderline dilated. The right atrium size is normal. The interatrial septum is intact with no evidence for an atrial septal defect. AORTIC VALVE The aortic valve is normal in structure. No aortic regurgitation is present. There is no aortic valvular stenosis. There is no aortic valvular vegetation. MITRAL VALVE The mitral valve is normal in structure. There is no evidence of mitral valve prolapse. There is no mitral valve stenosis. There is mild mitral valve regurgitation noted. TRICUSPID VALVE The tricuspid valve is normal in structure. There is no tricuspid valve regurgitation noted. There is no tricuspid valve prolapse or vegetation. There is no tricuspid valve stenosis. PULMONIC VALVE The pulmonary valve is normal in structure. There is no pulmonic valvular regurgitation. There is no pulmonic valvular stenosis. GREAT VESSELS The aortic root is normal in size. The ascending aorta is normal in size. The pulmonary artery is normal. The IVC is normal in size and collapses >50% with inspiration. PERICARDIAL EFFUSION There is no pericardial effusion. There is no pleural effusion. <Conclusion> There is mild concentric left ventricular hypertrophy. The estimated ejection fraction is 60-65% Transmitral Doppler flow pattern is Grade I-abnormal relaxation pattern. The left atrium is borderline dilated. There is mild mitral valve regurgitation noted. There is no tricuspid valve regurgitation noted.
--- NOTE | 2019-01-26 15:56 | CP.PCM.DIS ---
Provider - Provider Date of Admission: 01/26/19 04:42 Attending physician: Jerrod Iniguez Primary care physician: Desmond Mejía MD Consults: 01/26/19 05:32 Cardiology Consult Routine Comment: Consulting Provider: Zak Dos Santos Consulting Physician: Zak Dos Santos Reason for Consult: chest pain, hx cardiac arrest during colonoscopy 14 yrs ago Time Spent in preparation of Discharge (in minutes): 20 Diagnosis - Discharge Diagnosis (1) Chest pain Status: Acute Comment: Improved (2) Diabetes Status: Chronic Hospital Course - Lab Results Lab Results: Most Recent Lab Values WBC 8.0 K/uL (4.8-10.8) 01/26/19 03:09 RBC 4.74 Mil/uL (3.80-5.20) 01/26/19 03:09 Hgb 13.6 g/dL (12.0-16.0) 01/26/19 03:09 Hct 40.0 % (34.0-47.0) 01/26/19 03:09 MCV 84.4 fl (81.0-99.0) D 01/26/19 03:09 MCH 28.8 pg (27.0-31.0) 01/26/19 03:09 MCHC 34.1 g/dL (33.0-37.0) 01/26/19 03:09 RDW 13.8 % (11.5-14.5) 01/26/19 03:09 Plt Count 249 K/uL (130-400) 01/26/19 03:09 MPV 9.5 fl (7.2-11.7) 01/26/19 03:09 Neut % (Auto) 54.8 % (50.0-75.0) 01/26/19 03:09 Lymph % (Auto) 33.8 % (20.0-40.0) 01/26/19 03:09 [place] % (Auto) 7.5 % (0.0-10.0) 01/26/19 03:09 Eos % (Auto) 3.3 % (0.0-4.0) 01/26/19 03:09 Baso % (Auto) 0.6 % (0.0-2.0) 01/26/19 03:09 Neut # (Auto) 4.4 K/uL (1.8-7.0) 01/26/19 03:09 Lymph # (Auto) 2.7 K/uL (1.0-4.3) 01/26/19 03:09 [place] # (Auto) 0.6 K/uL (0.0-0.8) 01/26/19 03:09 Eos # (Auto) 0.3 K/uL (0.0-0.7) 01/26/19 03:09 Baso # (Auto) 0.0 K/uL (0.0-0.2) 01/26/19 03:09 Sodium 139 mmol/l (132-148) 01/26/19 03:09 Potassium 4.6 MMOL/L (3.6-5.0) 01/26/19 03:09 Chloride 105 mmol/L (98-107) 01/26/19 03:09 Carbon Dioxide 21 mmol/L (22-30) L 01/26/19 03:09 Anion Gap 18 (10-20) 01/26/19 03:09 BUN 26 mg/dl (7-17) H 01/26/19 03:09 Creatinine 0.7 mg/dl (0.7-1.2) 01/26/19 03:09 Est GFR ( Amer) > 60 01/26/19 03:09 Est GFR (Non-Af Amer) > 60 01/26/19 03:09 POC Glucose (mg/dL) 194 mg/dL (65-110) H 01/26/19 12:59 Random Glucose 137 mg/dL (65-105) H 01/26/19 03:09 Hemoglobin A1c 9.2 % (4.2-6.5) H 01/26/19 07:25 Calcium 9.9 mg/dL (8.4-10.2) 01/26/19 03:09 Total Bilirubin 0.5 mg/dl (0.2-1.3) 01/26/19 03:09 AST 31 U/L (14-36) 01/26/19 03:09 ALT 26 U/L (9-52) 01/26/19 03:09 Alkaline Phosphatase 108 U/L (38-126) 01/26/19 03:09 Troponin I < 0.0120 ng/mL (0.00-0.120) 01/26/19 11:30 Total Protein 8.0 G/DL (6.3-8.2) 01/26/19 03:09 Albumin 4.5 g/dL (3.5-5.0) 01/26/19 03:09 Globulin 3.5 gm/dL (2.2-3.9) 01/26/19 03:09 Albumin/Globulin Ratio 1.3 (1.0-2.1) 01/26/19 03:09 Triglycerides 74 mg/DL (0-149) D 01/26/19 07:25 Cholesterol 141 mg/dL (0-199) 01/26/19 07:25 LDL Cholesterol Direct 76 mg/dL (0-129) 01/26/19 07:25 HDL Cholesterol 50 MG/DL (30-70) 01/26/19 07:25 Vitamin B12 665 pg/mL (239-931) 01/26/19 07:25 - Hospital Course Hospital Course: 78 year old Female with PMHx HTN, DMII, HLD, Lower back pain, hx cardiac arrest during colonoscopy that required defibrillation about 14 yrs ago presented to [facility] ED with complaints of chest pain (04/18) that radiates to B/L upper chest. Admitted for observation and evaluate of ACS. In Ed patient was worked up for ACS, Patient received Aspirin, nitro for pain. patient troponin x2 negative, Patient had an echo with EJ of 55-60% ( no change compared to study from ). Patient EKG had no change. Patient pain was resolved. ACS is unlikely. Patient will be discharged to follow up with PCP which is her Solution Strategist Dr Mejaí in 2-3 days. Patient seen and examined today morning. No change. Patient feel good and is com fortable to go home Chart reviewed, question and concern of patient answered. Patient is stable to be discharge home and follow up with pcp. Discharge Exam - Head Exam Head Exam: NORMAL INSPECTION - Eye Exam Eye Exam: EOMI, Normal appearance, PERRL Pupil Exam: NORMAL ACCOMODATION, PERRL - Respiratory Exam Respiratory Exam: Clear to PA & Lateral, NORMAL BREATHING PATTERN, UNREMARKABLE - Cardiovascular Exam Cardiovascular Exam: REGULAR RHYTHM, +S1, +S2 - GI/Abdominal Exam GI & Abdominal Exam: Normal Bowel Sounds, Unremarkable - Neurological Exam Neurological exam: Alert, CN II-XII Intact, Oriented x3, Reflexes Normal - Psychiatric Exam Psychiatric exam: Normal Affect, Normal Mood - Skin Skin Exam: Dry, Intact, Normal Color, Warm Discharge Plan - Follow Up Plan Condition: GOOD Disposition: HOME/ ROUTINE Referrals: Desmond Mejía MD [Primary Care Provider] -
[2019-01-26] MEDS ORDERED: Insulin Detemir 100 Units/ml Inj SC SCH (22:00)
--- NOTE | 2019-01-27 00:23 | CON ---
DATE: 01/26/2019 CARDIOLOGY CONSULTATION REASON FOR CONSULTATION: Chest pain. HISTORY OF PRESENT ILLNESS: The history was obtained from the patient's son at the bedside. The patient is a 78-year-old female who has a history of diabetes mellitus, history of anxiety, and presented to the emergency room with chest pain, which she describes as heaviness. The patient was also noted to be significantly hyperglycemic with blood sugar above 400. According to the son, the patient is being followed by Dr. Desmond Mejía, her Food Preservation Scientist. Had no prior history of heart attack or coronary intervention. SOCIAL HISTORY: The patient is nonsmoker, nondrinker. She lives by herself. She has a helper who visits her few hours a day. MEDICATIONS: Current medications, Coreg 6.25 mg twice a day, Cozaar 100 mg once a day, aspirin 81 mg once a day, Lovenox 40 mg subcutaneously once a day, hydrochlorothiazide 12.5 mg once a day, Motrin 600 mg every 8 hours p.r.n., Neurontin 300 mg at bedtime, Norvasc 10 mg once a day, Protonix 40 mg p.o. once a day. REVIEW OF SYSTEMS: No abdominal pain. No nausea or vomiting. No dizziness, no syncope. PHYSICAL EXAMINATION: GENERAL: The patient is an elderly female who does not appear to be in any distress. VITAL SIGNS: Blood pressure 132/75, heart rate 74, temperature 98.7, and respirations 17. HEENT: Normocephalic. NECK: No JVD. CHEST: Clear. HEART: S1 and S2. Regular. ABDOMEN: Soft. EXTREMITIES: No edema. LABORATORY DATA: Hemoglobin and hematocrit 13.6 and 40.0. White count and platelet count are within normal limits. SMA-7: Sodium 139, potassium 4.6, chloride 105, CO2 of 21, glucose 137, BUN 26, creatinine 0.7. Two sets of troponins are negative. Lipid profile is within normal limits. EKG reveals sinus rhythm at rate of 75 with nonspecific T-wave abnormality. Echocardiographic study revealed mild concentric LVH with normal ejection fraction and grade 1 abnormal relaxation pattern. ASSESSMENT: 1. Chest pain. Myocardial infarction is ruled out. 2. Uncontrolled diabetes mellitus. 3. Hypertension. RECOMMENDATIONS: Continue Coreg 6.25 mg twice a day, aspirin 81 mg once a day, hydrochlorothiazide 12.5 mg once a day and Norvasc 10 mg once a day. The patient can be discharged and followed by her Food Preservation Scientist, Dr. Desmond Mejía for an outpatient stress test. Zak Dos Santos MD
[2019-01-27 01:57] VITALS: PULSE 75
== END 2019-01-26 15:41 | disposition home or self-care (01) ==
LOC: H.ER 02:32 → H.ERHOLD 04:42
PROVIDERS: ADMIT Internal Medicine; ATTEND Internal Medicine
DX: R07.89 Other chest pain (principal); E11.65 Type 2 diabetes mellitus with hyperglycemia; F41.9 Anxiety disorder, unspecified; E11.40 Type 2 diabetes mellitus with diabetic neuropathy, unspecified; I10 Essential (primary) hypertension; E78.5 Hyperlipidemia, unspecified; E78.00 Pure hypercholesterolemia, unspecified; Z79.4 Long term (current) use of insulin; Z86.74 Personal history of sudden cardiac arrest
CPT/HCPCS: 80053; 80061; 82607; 82948; 83036; 84484; 85025; 93005; 93306; 96372; 99285; G0378; J1650; J7030